=== PATIENT | male | born 1990 | race African-American/Black ===

== ENCOUNTER 2019-07-25 19:20 | Emergency (ER) | payer OTHER ==
[~2019-07-25] VITALS: Ht 182.9 cm; Wt 117.9 kg
[~2019-07-25 19:20] MED LIST: APAP500 PO; FAZACLO100 MG; FAZACLO25 MG; FERROUS SULFAT325 M1; FLAX SEED OIL1000 MG PO; GLUCOPHAGE500 MG; IBUPROFEN 800800 M1 PO; IBUPROFEN 800800 MG PO; LIPITOR20 MG PO; VASOTEC5 MG PO; ZPAK PO
[2019-07-25] MEDS ORDERED: NAPROSYN500 MG PO ×2 (20:15→20:40)
[2019-07-25 21:58] VITALS: BP 129/77
== END 2019-07-25 20:57 ==
LOC: ER 19:20
DX: S06.9X9A Unspecified intracranial injury with loss of consciousness of unspecified duration, initial encounter (principal); S00.212A Abrasion of left eyelid and periocular area, initial encounter; M25.561 Pain in right knee; E11.9 Type 2 diabetes mellitus without complications; I10 Essential (primary) hypertension; Z79.899 Other long term (current) drug therapy; F17.200 Nicotine dependence, unspecified, uncomplicated; Z91.013 Allergy to seafood; Z88.6 Allergy status to analgesic agent; Z88.0 Allergy status to penicillin; Z88.8 Allergy status to other drugs, medicaments and biological substances; Y08.89XA Assault by other specified means, initial encounter; Y93.89 Activity, other specified; Y92.89 Other specified places as the place of occurrence of the external cause; Y99.8 Other external cause status

== ENCOUNTER 2020-01-05 00:07 | Emergency (ER) | payer OTHER ==
[~2020-01-05] VITALS: Ht 198.1 cm; Wt 132.9 kg
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
[~2020-01-05 00:07] MED LIST changes: +NAPROSYN500 MG PO
[2020-01-05] MEDS ORDERED: FLONASE 0.05%50 MCG NARES (00:28)
[2020-01-05] MEDS ORDERED: DEPAKOTE ER500 M1 PO (00:29)
[2020-01-05] MEDS ORDERED: LEVO-T25 MCG PO (00:29)
[2020-01-05] MEDS ORDERED: LORATIDINE 10 M10 M1 PO (00:29)
[2020-01-05] MEDS ORDERED: TOPAMAX100 MG PO (00:30)
[2020-01-05] MEDS ORDERED: ATIVAN1 M1 PO (00:30)
[2020-01-05] MEDS ORDERED: HYDROXYZINE HCL25 M2 PO (00:32)
[2020-01-05] MEDS ORDERED: GLUCOSAMINE HC500 M1 PO (00:32)
[2020-01-05] MEDS ORDERED: SIMVASTATIN80 MG PO (00:35)
[2020-01-05] MEDS ORDERED: FAMOTIDINE 20 M20 MG PO (00:35)
[2020-01-05] MEDS ORDERED: QUETIAPINE FUM300 M1 PO (00:35)
[2020-01-05] MEDS ORDERED: DESYREL150 MG PO (00:36)
[2020-01-05] MEDS ORDERED: HALOPERIDOL 5 MG5 MG PO (00:36)
[2020-01-05] MEDS ORDERED: HALOPERIDOL5 MG/1 M1 IM (00:39)
[2020-01-05 01:32] VITALS: BP 111/55
== END 2020-01-05 02:47 | disposition home or self-care (01) ==
LOC: ER 00:07
DX: S01.112A Laceration without foreign body of left eyelid and periocular area, initial encounter (principal); S01.412A Laceration without foreign body of left cheek and temporomandibular area, initial encounter; I10 Essential (primary) hypertension; Z79.899 Other long term (current) drug therapy; F17.210 Nicotine dependence, cigarettes, uncomplicated; Z88.0 Allergy status to penicillin; Z88.5 Allergy status to narcotic agent; Z91.013 Allergy to seafood; Z88.8 Allergy status to other drugs, medicaments and biological substances; Y04.2XXA Assault by strike against or bumped into by another person, initial encounter; Y93.89 Activity, other specified; Y92.89 Other specified places as the place of occurrence of the external cause; Y99.8 Other external cause status

== ENCOUNTER 2020-09-25 20:41 | Emergency (ER) | payer OTHER ==
[~2020-09-25] VITALS: Ht 198.1 cm; Wt 125.2 kg
[~2020-09-25 20:41] MED LIST changes: +ATIVAN1 M1 PO; +DEPAKOTE ER500 M1 PO; +DESYREL150 MG PO; +FAMOTIDINE 20 M20 MG PO; +FLONASE 0.05%50 MCG NARES; +GLUCOSAMINE HC500 M1 PO; +HALOPERIDOL 5 MG5 MG PO; +HALOPERIDOL5 MG/1 M1 IM; +HYDROXYZINE HCL25 M2 PO; +LEVO-T25 MCG PO; +LORATIDINE 10 M10 M1 PO; +QUETIAPINE FUM300 M1 PO; +SIMVASTATIN80 MG PO; +TOPAMAX100 MG PO
[2020-09-25 21:33] VITALS: BP 122/83
== END 2020-09-25 21:32 | disposition home or self-care (01) ==
LOC: ER 20:41
DX: R45.1 Restlessness and agitation (principal); F17.210 Nicotine dependence, cigarettes, uncomplicated; I10 Essential (primary) hypertension; K21.9 Gastro-esophageal reflux disease without esophagitis; K59.00 Constipation, unspecified; E78.5 Hyperlipidemia, unspecified; Z91.013 Allergy to seafood; Z88.6 Allergy status to analgesic agent; Z88.5 Allergy status to narcotic agent; Z79.899 Other long term (current) drug therapy